=== PATIENT | female | born 1995 | race African-American/Black ===

== ENCOUNTER 2018-03-25 22:29 | Outpatient (CLI) | payer OTHER ==
[2018-03-25 23:04] VITALS: BP 143/83
[2018-03-25 23:16] LABS: MICROSCOPIC INDICATED
== END 2018-03-25 23:20 | disposition home or self-care (01) ==
LOC: LDOP 22:29
PROVIDERS: ATTEND Obstetrics & Gynecology
DX: O26.899 Other specified pregnancy related conditions, unspecified trimester (principal); R10.9 Unspecified abdominal pain; Z3A.00 Weeks of gestation of pregnancy not specified
CPT/HCPCS: 59025; 81001; 87086; 99201; G0463